=== PATIENT | female | born 1965 | race Caucasian/White ===

== ENCOUNTER 2019-02-09 17:02 | Outpatient (CLI) | payer SELFPAY ==
[2019-02-09 17:40] LABS: Troponin I Less than 0.010 ng/mL (< 0.028)
== END 2019-02-09 17:03 | disposition home or self-care (01) ==
LOC: MADLAB 17:02
PROVIDERS: ATTEND Family Medicine
DX: R07.9 Chest pain, unspecified (principal)
CPT/HCPCS: 36415; 84484